=== PATIENT | male | born 1975 | race Caucasian/White ===

== ENCOUNTER 2017-10-02 18:33 | Emergency (ER) | payer MEDICAID ==
[~2017-10-02] VITALS: Ht 180.3 cm; Wt 92.0 kg
[~2017-10-02 18:33] MED LIST: HYDR-3965 PO; HYDR12.55 PO
[2017-10-02 18:45] VITALS: BP 156/93
[2017-10-02] MEDS ORDERED: sulfamethoxazole/trimethoprim DS (800/160mg) tablet PO ONE (19:00)
[2017-10-02] MEDS ORDERED: cephalexin 250mg capsule PO ONE (19:00)
[2017-10-02] MEDS ORDERED: CEPH500C5 PO (19:00)
[2017-10-02] MEDS ORDERED: BACDS PO (19:00)
== END 2017-10-02 19:10 | disposition home or self-care (01) ==
LOC: ER 18:34
DX: L03.113 Cellulitis of right upper limb (principal); I10 Essential (primary) hypertension; F17.210 Nicotine dependence, cigarettes, uncomplicated
CPT/HCPCS: 99283

== ENCOUNTER 2018-08-16 17:04 | Emergency (ER) | payer OTHER ==
[~2018-08-16] VITALS: Ht 182.9 cm; Wt 95.0 kg
[~2018-08-16 17:04] MED LIST changes: +CEPH500C5 PO; +CYCL-1 PO; +IBUP-1986 PO
[2018-08-16 17:18] VITALS: BP 146/94
[2018-08-16] MEDS ORDERED: PENI250T2 PO (18:39)
== END 2018-08-16 18:49 | disposition home or self-care (01) ==
LOC: ER 17:05
DX: K04.7 Periapical abscess without sinus (principal); I10 Essential (primary) hypertension; Z98.890 Other specified postprocedural states; Z79.2 Long term (current) use of antibiotics; Z79.899 Other long term (current) drug therapy; Z56.0 Unemployment, unspecified
CPT/HCPCS: 99283

== ENCOUNTER 2019-03-13 02:23 | Emergency (ER) | payer OTHER ==
[~2019-03-13] VITALS: Ht 180.3 cm; Wt 93.0 kg
[~2019-03-13 02:23] MED LIST changes: -CEPH500C5 PO
[2019-03-13 02:28] VITALS: BP 164/112
[2019-03-13] MEDS ORDERED: ibuprofen tablet 400 MG TABLET PO ONE ×2 (02:30→03:10)
[2019-03-13] MEDS ORDERED: amox tr/potassium clavulanate 875/125mg TAB PO ONE (03:10)
[2019-03-13] MEDS ORDERED: AMOX-422 PO (03:11)
== END 2019-03-13 03:21 | disposition home or self-care (01) ==
LOC: ER 02:25
DX: S91.331A Puncture wound without foreign body, right foot, initial encounter (principal); I10 Essential (primary) hypertension; F17.210 Nicotine dependence, cigarettes, uncomplicated; Z98.890 Other specified postprocedural states; Z79.899 Other long term (current) drug therapy; Z56.0 Unemployment, unspecified; W45.0XXA Nail entering through skin, initial encounter; Y93.89 Activity, other specified; Y92.89 Other specified places as the place of occurrence of the external cause; Y99.8 Other external cause status
CPT/HCPCS: 73630; 99283

== ENCOUNTER 2019-05-27 18:29 | Emergency (ER) | payer SELFPAY ==
[~2019-05-27] VITALS: Ht 182.9 cm; Wt 90.9 kg
[2019-05-27] MEDS ORDERED: dexamethasone sod phosphate 10mg/ml inj IV STA (19:31)
[2019-05-27] MEDS ORDERED: proCHLORperazine 10 MG/2 ml inj IV ONE (19:35)
[2019-05-27] MEDS ORDERED: diphenhydrAMINE 50 mg/ml inj IV ONE (19:35)
[2019-05-27] MEDS ORDERED: normal saline 1000ml 1,000 ML IV ONE (19:40)
--- NOTE | 2019-05-27 20:00 | NUR ---
back from[place] ct
[2019-05-27] MEDS ORDERED: ketorolac trometh. 30mg/ml inj. IV ONE (20:20)
[2019-05-27 21:36] VITALS: BP 179/67
== END 2019-05-27 21:38 | disposition home or self-care (01) ==
LOC: ER 18:30
DX: R51 Headache (principal); R11.2 Nausea with vomiting, unspecified; I10 Essential (primary) hypertension; F10.99 Alcohol use, unspecified with unspecified alcohol-induced disorder; Z98.890 Other specified postprocedural states; Z79.899 Other long term (current) drug therapy; Y90.9 Presence of alcohol in blood, level not specified
CPT/HCPCS: 70450; 96361; 96374; 96375; 99284; J0780; J1100; J1200; J1885; J7030

== ENCOUNTER 2019-10-09 17:33 | Emergency (ER) | payer MEDICAID, OTHER ==
[~2019-10-09] VITALS: Ht 175.3 cm; Wt 90.0 kg
[2019-10-09] MEDS ORDERED: dexamethasone sod phosphate 10mg/ml inj IM STA (18:47)
[2019-10-09] MEDS ORDERED: diphenhydrAMINE 25mg capsule PO ONE (18:50)
[2019-10-09] MEDS ORDERED: metoclopramide 10mg tablet PO ONE (18:50)
[2019-10-09] MEDS ORDERED: ketorolac tromethamine 15mg/ml inj. IM ONE (18:50)
[2019-10-09] MEDS ORDERED: cloNIDine 0.1 mg tablet PO ONE (19:25)
[2019-10-09 20:44] VITALS: BP 158/96
== END 2019-10-09 20:41 | disposition home or self-care (01) ==
LOC: ER 17:34
DX: G43.909 Migraine, unspecified, not intractable, without status migrainosus (principal); I10 Essential (primary) hypertension; Z56.0 Unemployment, unspecified; Z72.89 Other problems related to lifestyle; Z79.899 Other long term (current) drug therapy; Z98.890 Other specified postprocedural states
CPT/HCPCS: 96372; 99284; J1100; J1885; Q0163; J8597

== ENCOUNTER 2019-10-15 21:28 | Emergency (ER) | payer MEDICAID, OTHER ==
[~2019-10-15] VITALS: Ht 180.3 cm; Wt 93.2 kg
[2019-10-15 21:41] VITALS: BP 179/125
[2019-10-15] MEDS ORDERED: PRED20TA PO (22:28)
== END 2019-10-15 22:52 | disposition home or self-care (01) ==
LOC: ER 21:30
DX: J06.9 Acute upper respiratory infection, unspecified (principal); I10 Essential (primary) hypertension; Z56.0 Unemployment, unspecified; Z98.890 Other specified postprocedural states; Z79.899 Other long term (current) drug therapy
CPT/HCPCS: 99283

== ENCOUNTER 2020-06-01 11:02 | Emergency (ER) | payer MEDICAID ==
[~2020-06-01] VITALS: Ht 177.8 cm; Wt 87.0 kg
[2020-06-01] MEDS ORDERED: ketorolac tromethamine 15mg/ml inj. IV ONE (11:40)
[2020-06-01] MEDS ORDERED: hydrALAZINE 20mg/ml inj. IV ONE (11:40)
[2020-06-01] MEDS ORDERED: proCHLORperazine 10 MG/2 ml inj IV ONE (11:40)
[2020-06-01] MEDS ORDERED: diphenhydrAMINE 50 mg/ml inj IV ONE (11:40)
[2020-06-01] MEDS ORDERED: normal saline 1000ML IV soln IVB ONE (11:40)
[2020-06-01 12:01] LABS: BASOPHILS # (AUTO) 0.1 X10'3 (0-0.2); BASOPHILS % (AUTO) 1.2 % (0-1); EOSINOPHILS # (AUTO) 0.2 X10'3 (0-0.9); EOSINOPHILS % (AUTO) 2.9 % (0-6); HEMATOCRIT 43.7 % (42.0-52.0); LYMPHOCYTES # (AUTO) 2.5 X10'3 (1.1-4.8); LYMPHOCYTES % (AUTO) 35.2 % (21-51); MEAN CORPUSCULAR HEMOGLOBIN 32.2 PG (27.0-31.0); MEAN CORPUSCULAR HGB CONC 34.3 g/dL (33.0-36.5); MEAN CORPUSCULAR VOLUME 93.8 FL (78-98); MONOCYTES # (AUTO) 0.7 X10'3 (0-0.9); MONOCYTES % (AUTO) 9.8 % (2-12); NEUTROPHILS # (AUTO) 3.6 X10'3 (1.8-7.7); NEUTROPHILS % (AUTO) 50.9 % (42-75); PLATELET COUNT 303 X10'3 (140-440); RED BLOOD COUNT 4.66 X10'6 (4.70-6.10); RED CELL DISTRIBUTION WIDTH 13.7 % (11.5-14.5); WHITE BLOOD COUNT 7.1 X10'3 (4.5-11.0)
[2020-06-01 12:17] LABS: ALANINE AMINOTRANSFERASE 40 U/L (12-78); ALBUMIN 4.1 G/DL (3.4-5.0); ALKALINE PHOSPHATASE 81 IU/L (46-116); ANION GAP 8 (8-16); ASPARTATE AMINO TRANSFERASE 27 U/L (10-37); BILIRUBIN,TOTAL 0.4 MG/DL (0.1-1.0); BLOOD UREA NITROGEN 13 MG/DL (7-18); BUN/CREATININE RATIO 14.8 (5.4-32.0); CALCIUM 9.1 MG/DL (8.5-10.1); CHLORIDE 103 MMOL/L (99-107); CREATININE 0.88 MG/DL (0.60-1.10); GLUCOSE 112 MG/DL (70-104); POTASSIUM 3.6 MMOL/L (3.5-5.1); SODIUM 139 MMOL/L (135-145); TOTAL CARBON DIOXIDE 28.2 MMOL/L (24-32); TOTAL PROTEIN 8.2 G/DL (6.4-8.2); eGFR > 90 ML/MIN
[2020-06-01 12:49] VITALS: BP 172/109
[2020-06-01] MEDS ORDERED: LISI-600 PO (13:09)
== END 2020-06-01 14:07 | disposition home or self-care (01) ==
LOC: ER 11:03
DX: G43.909 Migraine, unspecified, not intractable, without status migrainosus (principal); I10 Essential (primary) hypertension; R11.0 Nausea; Z98.890 Other specified postprocedural states; Z56.0 Unemployment, unspecified; Z79.899 Other long term (current) drug therapy
CPT/HCPCS: 36415; 80053; 85025; 93005; 96361; 96374; 96375; 99284; J0360; J0780; J1200; J1885; J7030

== ENCOUNTER 2021-07-14 15:39 | Emergency (ER) | payer MEDICAID ==
[~2021-07-14] VITALS: Ht 177.8 cm; Wt 90.9 kg
[2021-07-14] MEDS ORDERED: CASIRIVIMAB/IMDEVIMAB inject. 10 ML in normal saline 100ml IV soln 100 ML IV ONE (16:00)
[2021-07-14] MEDS ORDERED: BAMLANIVIMAB 700MG, ETESEVIMAB 1,400MG in NS 100mL (Total vol 160ml) IV ONE (16:10)
[2021-07-14] MEDS ORDERED: ALBU6.7H9 INH (17:01)
[2021-07-14] MEDS ORDERED: BUDE180A INH (17:01)
[2021-07-14 19:11] VITALS: BP 157/113
== END 2021-07-14 19:13 | disposition home or self-care (01) ==
LOC: ER 15:40
DX: U07.1 COVID-19 (principal); R53.1 Weakness; R05.9 Cough, unspecified; R09.89 Other specified symptoms and signs involving the circulatory and respiratory systems; I10 Essential (primary) hypertension; F17.200 Nicotine dependence, unspecified, uncomplicated; Z98.890 Other specified postprocedural states; Z72.89 Other problems related to lifestyle; Z56.0 Unemployment, unspecified; Z79.899 Other long term (current) drug therapy
CPT/HCPCS: 71045; 87635; 99284; C9803

== ENCOUNTER 2022-12-24 23:45 | Emergency (ER) | payer SELFPAY ==
[~2022-12-24] VITALS: Ht 180.3 cm; Wt 86.2 kg
[~2022-12-24 23:45] MED LIST changes: +ALBU6.7H14 INH; +BUDE180A INH
[2022-12-24 23:56] VITALS: BP 186/118
== END 2022-12-25 02:01 | disposition left against medical advice (07) ==
LOC: ER 23:45
DX: R51.9 Headache, unspecified (principal); Z53.21 Procedure and treatment not carried out due to patient leaving prior to being seen by health care provider
CPT/HCPCS: 99281

== ENCOUNTER 2023-03-18 04:12 | Emergency (ER) | payer MEDICAID | END 2023-03-18 04:30 | disposition left against medical advice (07) | LOC: ER 04:13 | DX: R51.9 Headache, unspecified (principal); Z53.21 Procedure and treatment not carried out due to patient leaving prior to being seen by health care provider ==

== ENCOUNTER 2025-09-04 16:14 | Emergency (ER) | payer MEDICAID, OTHER ==
[~2025-09-04] VITALS: Ht 180.3 cm; Wt 93.3 kg
[~2025-09-04 16:14] MED LIST changes: -ALBU6.7H14 INH; -BUDE180A INH; -CYCL-1 PO; -HYDR-3965 PO; -HYDR12.55 PO; -IBUP-1986 PO; +NO HOME MEDS; +NOR5T PO
[2025-09-04 16:16] VITALS: BP 149/96; PULSE 92; RESP 14; TEMP 98.3; O2SAT 97
--- NOTE | 2025-09-04 18:43 | Physician Documentation ---
History of Present Illness ~ Chief Complaint: Eye Pain Stated Complaint: EYE PAIN Time Seen by MD: 17:29 Primary Medical Doctor: [facility], [facility] HPI Patient is a very pleasant 50-year-old male that presents to the emergency department for evaluation of foreign body to the right eye. Patient reports that he was sawing wood earlier today believes that he got either a wood chip in his eye or possibly sawdust. Patient reports that he has had multiple episodes of foreign bodies in his eyes and this feels very similar to either foreign bodies or corneal abrasion that he has previously experienced. Patient denies any blurry vision or visual acuity change at this time. Patient denies headache nausea vomiting shortness of breath chest pain or any other symptoms at this time. Medication Reconciliation Allergies: Coded Allergies: No Known Allergies (Unverified , 09/04/25) Scheduled Amlodipine Besylate (Amlodipine Besylate), 10 MG PO DAILY Ofloxacin Opth.* (Ofloxacin Opth.*), 1 DROP RIGHTEYE Q6H Miscellaneous Medications Home Med List (No Home Medications), (Reported) Past Medical History Past Medical History: Headache, Hypertension Past Surgical History: abdominal surgery, orthopedic surgeries Patient History: FH: heart disease FHx: hypercholesterolemia FHx: hypertension Alcohol Use: Sober Drug Use: none Lives with: Other Lives In: Home Occupation: unemployed Review of Systems ROS As stated above in the HPI, otherwise all systems are reviewed and negative. Physical Exam Vital Signs: Temperature: 98.3, Source: Oral, Heart Rate: 92, Respiratory Rate: 14, BP: 149/96, Pulse Oximetry: 97, Weight: 93.300 Oxygen Flow Rate: 0 Physical Exam VITALS: Reviewed and as above. GENERAL: Alert, no apparent distress. HEENT: Normocephalic, atraumatic, PERRL, EOMI, significant redness and watering noted to the right eye, no obvious foreign body noted during examination, dry mucosa, no erythema. MUSCULOSKELETAL No deformities, no edema SKIN: Warm and dry, no rash NEURO: Oriented x4, No motor or sensory deficit PSYCH: Normal mood and affect, no agitation Visual Acuity : Eye Location: Right Vision Acuity Degree: 20/70 Progress Results/Orders Results/Orders Orders - JOSE TRAN General Nursing Order (09/04/25 18:02) General Nursing Order (09/04/25 18:02) Completed Orders - JOSE TRAN Ulises [employer] Fluorescein 1mg Ophthal Strip (Ful-Liliane O (09/04/25 18:05) Proparacaine Ophth Solution (Alcaine Oph (09/04/25 18:05) Vital Signs 09/04/25 16:16 Temp 98.3 Pulse 92 Resp 14 B/P (MAP) 149/96 Pulse Ox 97 O2 Flow Rate 0 Medical Decision Making Additional information obtaine: other Findings Chief Complaint: Foreign body sensation, right eye History of Present Illness: 50-year-old male presents with foreign body sensation to the right eye after sawing wood earlier today. Patient reports either wood chip or sawdust exposure. He has a history of multiple prior foreign body episodes and corneal abrasions, and states current symptoms are similar to previous episodes. Denies visual acuity changes, blurry vision, headache, nausea, vomiting, or other systemic symptoms. Physical Examination: Ocular examination performed using Wood's lamp with fluorescein strips and proparacaine drops. No foreign body identified. Examination revealed an area of corneal surface abrasion consistent with traumatic corneal abrasion. Medical Decision Making: This is a 50-year-old male with uncomplicated traumatic corneal abrasion following wood sawing activity. The differential diagnosis included retained c orneal foreign body, corneal abrasion, and corneal ulcer. Wood's lamp examination with fluorescein staining confirmed corneal abrasion without retained foreign body. Risk stratification indicates this is a simple, uncomplicated corneal abrasion. There are no high-risk features present including: no penetrating injury, no contact lens-related etiology, normal visual acuity, abrasion present less than 48 hours, no chemical or thermal exposure, no signs of infection, and no retained foreign body. [1-2] Treatment plan includes topical antibiotic prophylaxis. While evidence for antibiotic prophylaxis in preventing infection is limited, topical antibiotics are commonly prescribed and considered standard of care for traumatic corneal abrasions. [1][3] First dose administered in the emergency department with remaining doses prescribed for home use. Additional pain management options including topical NSAIDs or oral analgesics were discussed. [4-5] Patient counseled on return precautions including worsening pain, vision changes, purulent discharge, or development of new symptoms. Given the uncomplicated nature of this abrasion and patient's normal vision with resolving symptoms, routine ophthalmology follow-up is not required at this time. [1] Patient instructed to follow up with primary care provider as needed and to return to the emergency department for any concerning symptoms. Assessment: Corneal abrasion, right eye, traumatic, uncomplicated Disposition: Discharge home with topical antibiotic therapy and return precautions as discussed Ear Diff. Dx: Considerations: Include: Abrasion, Cerumen impaction, Foreign body, Otitis externa, Barotrauma, Otitis media, Perforation, Referred pain- dental, Referred pain-pharyngitis, Referred pain-sinusitis, Referred pain-TMJ syn., Tympanic Membrane Injury, Other Eye Diff. Dx: Considerations: Include: Chalazoin, Conjuctivits-allergic, Conjuctivitis-bacterial, Conjuctivits-chlamydial, Conjuctivitis-viral, Corneal abrasion, Corneal laceration, Corneal ulceration, Foreign body-conjuctiva, Foreign body-corneal, Foreign body-intraocular, Foreign body-lid, Glaucoma, Globe rupture, Hordeolum, Iritis, Orbital cellulitis, Periobital cellulitis, Retinal artery occulsion, Retinal vein occlusion, Rust ring, Subconjunctival hem, Ultraviolet keratitis, Uveitis, Vitreous hemorrhage, Other Nose Diff. Dx: Considerations: Include: Abrasion, Anterior nasal bleed, Avulsion, Contusion, Coagulopathy, Fracture-nasal bone, Fracture-septum, Hypertension, Laceration, Other, Posterior nasal bleed, Retained foreign body, Septal hematoma Tooth Diff. Dx: Considerations: Include: Alveolar fracture, Aveolar osteitis, ANUG, Facial cellulitis, Periapical abscess, Periodontal abscess, Post- extraction bleeding, Pulpitis, Trigeminal neuralgia, Tooth-avulsion, Tooth- eruption, Tooth-fracture, Tooth-subluxation, Other Throat Diff Dx: Considerations: Include: AIDS, Epiglottitis, Esophageal candidiasis, Hand foot mouth disease, Herpangina, Herpetic stomatitis, Herpes simplex, Infection mononucleosis, Immunodeficiency, Flaco's angina, Perito nsillar abscess, Peritonsillar cellulitis, Pharyngitis-diphtheria, Pharyngitis- strepococcal, Pharyngitis-viral, Thrush, URI, Other Departure Disposition: 01 HOME / SELF CARE / HOMELESS Impression: Primary Impression: Corneal abrasion Condition: Stable Discharge Instructions: Corneal Abrasion Additional Instructions: What is a corneal abrasion? You have a scratch on the clear surface of your eye (cornea). This happened when you were sawing wood today. How to use your eye drops: Use your antibiotic eye drops as prescribed Wash your hands before putting in drops Continue using the drops until the bottle is finished, even if your eye feels better What you can do at home: Take [id number] pain medicine like ibuprofen or acetaminophen for pain [1-2] Wear sunglasses if light bothers your eyes [1] Do not rub your eye [3] Do not wear contact lenses until your eye is completely healed You may use artificial tears (lubricating eye drops) as often as needed for comfort [1] What to expect: Most corneal abrasions heal within 24 to 72 hours (1 to 3 days) [4] Your eye may feel scratchy, teary, or sensitive to light These symptoms should improve each day When to return to the emergency department or see a doctor right away: Your pain gets worse instead of better Your vision gets blurry or you have trouble seeing You develop increased redness in your eye You see pus or yellow/green discharge from your eye You develop increased sensitivity to light Your symptoms are not improving after 24 hours You develop a headache, nausea, or vomiting [2] Follow-up: Follow up with your primary care doctor as needed If your symptoms are not better in 24 hours, you should be seen by a doctor [2] Referrals: NO PRIMARY CARE PROVIDER (PCP) Prescriptions Ofloxacin Opth.* (Ofloxacin Opth.*) 5 Ml Bottle 1 DROP RIGHTEYE Q6H for 7 Days, #5 ML Prov: JOSE TRAN 09/04/25 Education Educated: Patient Educated regarding: diagnosis, treatment, need for follow up Signature Scribe Signature: A Attestation: Scribed for Jose Tran by MARÍA Riley . 09/04/25 18:47 JOSE TRAN Sep 04, 2025 18:43
[2025-09-04] MEDS ORDERED: OFLO5DRO RIGHTEYE (18:45)
[2025-09-04] MEDS: fluorescein sod 1mg ophthalmic strip RIGHTEYE ONE (19:00)
[2025-09-04] MEDS: ofloxacin 0.33% 5ml ophthalmic drops EACHEYE SCH (19:00)
[2025-09-04] MEDS: proparacaine 0.5% ophthalmic drops 15ml EACHEYE ONE (19:00)
== END 2025-09-04 19:00 | disposition home or self-care (01) ==
LOC: ER 16:14
DX: S05.01XA Injury of conjunctiva and corneal abrasion without foreign body, right eye, initial encounter (principal); I10 Essential (primary) hypertension; Z79.899 Other long term (current) drug therapy; Z98.890 Other specified postprocedural states; Z56.0 Unemployment, unspecified; W44.9XXA Unspecified foreign body entering into or through a natural orifice, initial encounter; Y93.89 Activity, other specified; Y92.89 Other specified places as the place of occurrence of the external cause; Y99.8 Other external cause status
CPT/HCPCS: 99283